=== PATIENT | female | born 1985 | race Caucasian/White ===

== ENCOUNTER 2020-08-27 01:31 | Outpatient (CLI) | payer SELFPAY ==
[2020-08-28 03:00] LABS: SARS-CoV-2 RNA PCR Negative
== END 2020-08-27 01:32 | disposition home or self-care (01) ==
LOC: ANHCOVIDDT 01:31
PROVIDERS: PCP Urology; Visit Provider Surgery Plastic and Reconstructive Surgery
DX: Z01.812 Encounter for preprocedural laboratory examination; Z20.828 Contact with and (suspected) exposure to other viral communicable diseases
CPT/HCPCS: 87635; C9803; U0003

== ENCOUNTER 2020-08-29 02:03 | Day surgery (SDC) | payer OTHER, SELFPAY ==
[2020-08-18 13:19] VITALS: BMI 20.3
[2020-08-29] VITALS (13 sets, daily range): BP systolic 79–116; BP diastolic 48–73; PULSE 46–82; RESP 10–16; TEMP 35.9–36.8; O2SAT 94–100; BMI 18.6
--- NOTE | 2020-08-29 09:10 | ECG_ITS ---
Measurements Intervals [place] Rate: 59 P: 11 AR: 155 QRS: 65 QRSD: 83 T: 40 QT: 406 QTc: 404 Interpretive Statements SINUS BRADYCARDIA BORDERLINE ECG Electronically Signed On 08-29-2020 10:15:16 [employer] HEL[employer] by Anibal Adorno D.O.
--- NOTE | 2020-08-29 09:47 | WPDHPUPDATE1 ---
History and Physical Update Update Date/Time: 08/29/20 09:47 History and Physical has been reviewed, including an updated exam of the patient. There are NO changes in the patient's condition. Risks, benefits, and alternatives have been discussed and questions answered. Patient agrees to proceed with procedure.
[2020-08-29 09:49] LABS: Urine Cotinine NEGATIVE
[2020-08-29] MEDS: LACTATED RINGERS 1,000 ML 30 ML IV CONT ×2 (09:50→14:40)
--- NOTE | 2020-08-29 09:52 | SUR.PREOP ---
ASSISTED DR JENNINGS IN MARKING PT
[2020-08-29 09:56] LABS: Hematocrit 40.2 % (37.0-47.0); Hemoglobin 13.6 g/dL (12.0-15.0)
--- NOTE | 2020-08-29 10:04 | WPDANESEPPF ---
Anes - Initial Pre Proc Eval Procedure: Operation Date: 08/29/20 10:30 Proposed Procedures p Bilateral Augmentation Mammoplasty - Ethan Solis MD s Abdominoplasty - Ethan Solis MD Date/Time: 08/29/20 10:04 Surgeon: Ethan Solis MD Pre Op Diagnosis: Micromastia/ Skin Laxity Patient Data Age: 35 Gender: F Height: 5 ft 3 in Weight: 47.8 kg Allergies Allergy/AdvReac Type Severity Reaction Status Date / Time No Known Allergies Allergy Mild Verified 08/29/20 09:35 Home Medications Medication Instructions Recorded Confirmed Type carisoprodol 350 mg tablet 350 mg PO TID PRN #21 tablet 08/12/20 08/18/20 Rx docusate sodium 100 mg capsule 100 mg PO DAILY #14 cap 08/12/20 08/18/20 Rx ondansetron HCl 4 mg tablet 4 mg PO Q8H #28 tablet 08/12/20 08/18/20 Rx oxycodone-acetaminophen 5 mg-325 1 tablet PO Q6H PRN #15 tablet 08/12/20 08/18/20 Rx mg tablet Laboratory Tests 08/29/20 08/29/20 09:27 09:49 Hgb 13.6 g/dL g/dL (12.0-15.0) Hct 40.2 % % (37.0-47.0) Cotinine Negative Patient hx anesthesia problems: none Family hx anesthesia problems: none PMFSH Past Medical History Medical History (Updated 08/29/20 @ 10:06 by Elan Veliz MD) Hx of migraines Surgical History Surgical History History of History of D&C History of rhinoplasty Social History Social History Years smoked: 2 Smoking status: Never smoker Tobacco type: cigarettes Additional smoking assessment comments: QUIT 2005 Alcohol intake: never Drinks per week: 1 Substance use: unknown Spiritual care concerns: No Anes - Eval Final PreProcedure Day of Procedure 08/29/20 10:04 Patient weight: normal Heart: regular rate and rhythm Lungs: clear to auscultation Airway: Mallampati scale class II Neurological: alert and oriented Last oral intake: >/= 8 hours ASA classification: I Emergent: no Anesthetic plan: proceed Anesthesia type and monitoring: general and standard monitoring Informed Consent: The patient's anesthetic plan and its attendant risks and benefits were discussed with the patient/family/POA. Questions were solicited and answers provided to the satisfaction of the patient/family/POA.
--- NOTE | 2020-08-29 10:18 | PM.PROC ---
Procedure Note - Detailed Date of procedure: 08/29/20 Pre-op diagnosis: Micromastia/ Skin Laxity Post-op diagnosis: same Procedure performed: 1. Bilateral Augmentation Mammaplasty 2. Progressive tension abdominoplasty Description of procedure: She is here today for bilateral breast augmentation and abdominoplasty. Previously and again today the risks, benefits, alternatives were discussed in extensive detail. I wanted her to be very realistic about the risks involved as well as expectations. We discussed aftercare and what to monitor for. Made sure answered all of her questions to her satisfaction today and consent was obtained. Marked in the preoperative holding area with their verification. The patient was taken to the operating room placed supine on the operating table. Anesthesia was provided by anesthesiology. A landon catheter was started. A surgical time-out was taken. We cleansed the skin and 1% lidocaine and 0.25% Marcaine with epinephrine was used anesthetize as a field block. She was prepped and draped in a standard sterile fashion. Tegaderm nipple Segura were placed. A 15 blade used to make an incision along the inframammary fold. Dissection was continued at 45 degree angle until the chest wall as identified. I elevated above the muscle bilateral in a dual plane technique. I incised the pectoralis major along its inferior border and completely released the inferior border leaving the medial border intact. I created a subpectoral pocket in the appropriate dimensions based on our preoperative planning for the implant. I then copiously irrigated with saline solution and verified a strict hemostasis. Next the use a triple antibiotic and Betadine containing solution to irrigate the pocket. I washed my gloves with the triple antibiotic and Betadine solution. We washed the implant immediately upon opening it with this solution and only opened it when we needed it. I used implant funnel and no-touch technique. The implant was introduced into the pocket using the funnel. Having verified positioning of the implant this was closed using 2-0 Vicryl followed by 3-0 Monocryl in a running subcuticular 4-0 Monocryl followed by tissue glue. I proceeded to the abdominoplasty. I placed the patient in a flexed position to verify the upper and lower markings would reach. I then placed her supine. A thorough abdominal examination was completed. Stab incisions were made and used tumescent solution. A 10 blade was used to make the upper incision. I continued dissection down to the level of fascia. Elevated just what was necessary for repair of the diastasis and discontinuous undermining otherwise. I then again flexed the bed to verify the upper skin flap would reach the lower markings without tension. Once verified I placed her supine once again and a 10 blade used to make the lower incision. I elevated up to level the umbilicus and left the umbilicus intact on a well-vascularized stalk. The intervening tissue was removed. A 2 mm blunt cannula and Exparel which was mixed 20 cc in 100 cc for a total volume of 120 cc I injected deep to the fascia bilaterally as well as along the incision lines. I plicated the diastasis recti using 0 PDO stratafix barbed suture. This was in 2 separate layers using 2 separate sutures as well. I repaired around the umbilicus leaving plenty of room for well-vascularized stalk of the umbilicus with 2-0 PDS. I also plicated oblique with 0 PDO stratafix bilateral. The patient was flexed and starting from superior to inferior began plication using 2-0 Vicryl to obliterate all space in a standard progressive tension fashion. At the umbilicus I marked out the location of the skin and inset this with 3-0 Monocryl and 4-0 nylon. I continued the remainder of the plication using 2-0 Vicryl until I reached my lower planned scar line. I trimmed any excess skin of the upper flap making sure this was a tension-free closure. I then ap
[2020-08-29] MEDS: SCOPOLAMINE 1.5 MG PATCH TRANSDERM (10:33)
[2020-08-29] MEDS: ceFAZolin 2 GM/D5W 50 ML 2 GM/50 ML BAG IVPB (10:42)
[2020-08-29] MEDS: LIDO 1%/EPINEPHRINE 1:100,000 20 ML VIAL 40 ML INFILTRATE (11:00)
--- NOTE | 2020-08-29 12:02 | SUR.OPER ---
non removable metal braclet right wrist/wavier signed/wraped with 2 gauze roll under braclet and over braclet/loose application. Dr Solis aware braclet on and wraped with gauze prior to induction.
--- NOTE | 2020-08-29 12:42 | SUR.OPER ---
Breast Implants [facility] Soft Touch Breast Implants/Allergan/360cc left ssm-360, sn [id number] right ssm-360, sn [id number] Right Implant to field 1135 left implant to field 1145 Implants immediately placed in antibiotic solution bottle lot # [id number], exp [id number].
--- NOTE | 2020-08-29 13:32 | SUR.OPER ---
abdominal tissue 568.9 gm to dispose of tissue as per Dr Solis.
[2020-08-29] MEDS: LACTATED RINGERS 1,000 ML 125 ML IV CONT (16:38)
[2020-08-29] MEDS: carisoprodoL (*CRX) 350 MG TABLET PO (18:49)
[2020-08-29] MEDS: DOCUSATE SODIUM 100 MG CAPSULE PO (21:05)
[2020-08-30] VITALS: BP 100/64; PULSE 60; RESP 16; TEMP 37.1; O2SAT 100
[2020-08-30] MEDS: carisoprodoL (*CRX) 350 MG TABLET PO ×3 (00:12→12:56)
[2020-08-30] MEDS: LACTATED RINGERS 1,000 ML 125 ML IV CONT (00:15)
[2020-08-30] MEDS: oxyCODONE/ACETAMINOPHEN (*CRX) 5-325 MG TABLET PO ×3 (01:32→12:56)
[2020-08-30 04:00] VITALS: BP 114/62; PULSE 67; RESP 16; TEMP 36.8; O2SAT 99
[2020-08-30 06:45] VITALS: BP 107/75; PULSE 74; RESP 20; TEMP 37
--- NOTE | 2020-08-30 09:23 | WPDPN ---
Progress Note: A&P Assessment and Plan (1) Micromastia: Code(s): N64.82 - Hypoplasia of breast Status: Acute Assessment and Plan: Doing well after bilateral breast augmentation and abdominoplasty. Will discharge home. Follow-up. (2) Skin laxity: Code(s): L57.4 - Cutis laxa senilis Status: Acute Review of Systems Review of Systems: All systems reviewed & are unremarkable except as noted in HPI and below Exam Narrative: Exam Narrative: Bilateral breasts are soft. No signs of infection. No hematoma. No seroma. Abdomen is soft. No signs of infection. No hematoma. No seroma. Good color and capillary refill. No calf tenderness. Negative Homans. Const: General: comfortable, no acute distress, alert and awake; No acute distress Orientation/consciousness: oriented to person HENMT: Head: normal to inspection Ears: external ears normal General nose exam: Normal external nose present Face and sinus: normal facial exam Eyes: General: appearance normal, both eyes and all related structures Periorbital: periorbital findings normal Eyelids: eyelids normal Conjunctivae: conjunctivae normal Neck: Neck: normal visual inspection Chest: Chest palpation & inspection: normal inspection of the chest Resp: Effort & Inspection: normal respiratory effort and able to speak in complete sentences GI: Inspection: normal to inspection Neuro: General: oriented to person Psych: Appearance: grossly normal Mental Status: mental status grossly normal Objective Data Vital Signs Vital Signs: Vital Signs - 24 hr 08/29/20 14:40 08/29/20 14:55 08/29/20 15:10 Temperature 35.9 C L 36.0 C L Pulse Rate 53 L 46 L 53 L Respiratory Rate 10 L 10 L 12 Blood Pressure 95/65 L 95/52 L 98/68 L Pulse Oximetry 100 100 96 08/29/20 15:25 08/29/20 15:40 08/29/20 16:12 Temperature 36.1 C L 36.1 C L 36.3 C L Pulse Rate 48 L 50 L 51 L Respiratory Rate 12 12 16 Blood Pressure 92/67 L 95/57 L 84/50 L Pulse Oximetry 94 99 99 08/29/20 16:15 08/29/20 16:30 08/29/20 17:00 Temperature Pulse Rate 52 L 48 L 64 Respiratory Rate 14 14 16 Blood Pressure 84/50 L 84/50 L 116/73 Pulse Oximetry 100 99 100 08/29/20 17:30 08/29/20 18:00 08/29/20 19:00 Temperature 36.4 C Pulse Rate 57 L 51 L 63 Respiratory Rate 16 16 16 Blood Pressure 79/48 L 88/54 L 90/54 L Pulse Oximetry 100 100 100 08/29/20 20:00 08/30/20 00:00 08/30/20 04:00 Temperature 36.8 C 37.1 C 36.8 C Pulse Rate 82 60 67 Respiratory Rate 16 16 16 Blood Pressure 100/61 100/64 114/62 Pulse Oximetry 100 100 99 08/30/20 06:45 Temperature 37.0 C Pulse Rate 74 Respiratory Rate 20 Blood Pressure 107/75 Pulse Oximetry Intake/Output Intake/Output: Intake & Output 08/27/20 08/28/20 08/29/20 08/30/20 23:59 23:59 23:59 23:59 Intake Total 250 2380 Output Total 40 2150 Balance 210 230 Meds/Results Medications: Active Medications Generic Name Dose Route Start Last Admin Trade Name Freq PRN Reason Stop Dose Admin Carisoprodol 350 mg 08/29/20 18:00 08/30/20 07:07 Carisoprodol (*Crx) 350 Mg Tablet PO 350 mg Q6HR CARLI Administration Docusate Sodium 100 mg 08/29/20 21:00 08/29/20 21:05 Docusate Sodium 100 Mg Capsule PO 100 mg Q12HR CARLI Administration Enoxaparin Sodium 40 mg 08/30/20 09:00 Enoxaparin 40 Mg/0.4 Ml Syringe SUB-Q Q24H CARLI Lactated Ringer's 1,000 mls @ 125 mls/hr 08/29/20 14:35 08/30/20 04:15 Lr - Lactated Ringers Iv IV CONT 125 mls/hr .Q8H CARLI Infusion Morphine Sulfate 2 mg 08/29/20 14:33 Morphine Sulfate (*Crx) 2 Mg/Ml Inj IV PUSH Q2H PRN Pain Ondansetron HCl 4 mg 08/29/20 14:33 Ondansetron Inj 4 Mg/2 Ml Vial IV PUSH Q6H PRN Nausea Oxycodone/Acetaminophen 1 - 2 tablet 08/29/20 14:33 08/30/20 07:07 Oxycodone/Acetaminophen (*Crx) 5-325 Mg Tablet PO 1 tablet Q6H PRN Administration Pain Labs Labs: Laboratory R
--- NOTE | 2020-08-30 09:25 | P.DS_ITS ---
DS: Admitting Diagnosis Admitting Diagnosis Admitting Diagnosis: Micromastia/ Skin Laxity DS: Discharge Diagnosis Discharge Diagnosis (1) Micromastia: Code(s): N64.82 - Hypoplasia of breast Status: Acute Assessment and Plan: She is doing very well after bilateral augmentation mammoplasty and abdominoplasty. Will discharge home. Today we had a lengthy discussion about the care. Discussed what monitor for. Activity limitations. This was a lengthy open-ended conversation making sure all of her questions were answered. She understands when to proceed to the emergency room/ dial 911. What is a surgical emergency. She understands were available at any time with any questions or concerns. I will see her back in clinic. (2) Skin laxity: Code(s): L57.4 - Cutis laxa senilis Status: Acute DS: Summary Time Spent with Patient Time attestation: Total time spent providing and/or coordinating discharge serv ices: 15 Exam Narrative: Exam Narrative: Bilateral breasts are soft. No signs of infection. No hematoma. No seroma. Abdomen is soft. No signs of infection. No hematoma. No seroma. Good color and capillary refill. No calf tenderness. Negative Homans. Const: General: comfortable, no acute distress, alert and awake; No acute distress Orientation/consciousness: oriented to person HENMT: Head: normal to inspection Ears: external ears normal General nose exam: Normal external nose present Face and sinus: normal facial exam Eyes: General: appearance normal, both eyes and all related structures Periorbital: periorbital findings normal Eyelids: eyelids normal Conjunctivae: conjunctivae normal Neck: Neck: normal visual inspection Chest: Chest palpation & inspection: normal inspection of the chest Resp: Effort & Inspection: normal respiratory effort and able to speak in complete sentences GI: Inspection: normal to inspection Neuro: General: oriented to person Psych: Appearance: grossly normal Mental Status: mental status grossly normal DS: Data Data Completed and Pending Labs on day of discharge: Labs from last 24 hours 08/29/20 08/29/20 09:49 09:27 Hgb 13.6 Hct 40.2 Cotinine Negative Discharge Plan Discharge Patient Disposition: Home, Self-Care Discharge Instructions: POST OPERATIVE DISCHARGE INSTRUCTIONS FOR: Breast Augmentation WOODROW JENNINGS M.D. [facility] [place] [address] * No driving for 24 hours after anesthesia and while you are taking pain medication. * Take all prescribed medication as directed * Diet as tolerated. * Begin gentle shoulder rolls and arm stretches 10 times per hour. * No lifting or activity that raises blood pressure for 48 hours. * No straining or lifting more than 20 pounds for 6 weeks. * Slowly stand up straight as tolerated over the week. * Regular walking / ambulation. * No showering until directed to. * No pools or tubs for 2 weeks. * Call with any questions or concerns. * You may remove the dressings and bra. At this point my may shower. Do not take pain medication before showering as the combination of medication and
--- NOTE | 2020-08-30 09:25 | PM.DS ---
DS: Admitting Diagnosis Admitting Diagnosis Admitting Diagnosis: Micromastia/ Skin Laxity DS: Discharge Diagnosis Discharge Diagnosis (1) Micromastia: Code(s): N64.82 - Hypoplasia of breast Status: Acute Assessment and Plan: She is doing very well after bilateral augmentation mammoplasty and abdominoplasty. Will discharge home. Today we had a lengthy discussion about the care. Discussed what monitor for. Activity limitations. This was a lengthy open-ended conversation making sure all of her questions were answered. She understands when to proceed to the emergency room/ dial 911. What is a surgical emergency. She understands were available at any time with any questions or concerns. I will see her back in clinic. (2) Skin laxity: Code(s): L57.4 - Cutis laxa senilis Status: Acute DS: Summary Time Spent with Patient Time attestation: Total time spent providing and/or coordinating discharge services: 15 Exam Narrative: Exam Narrative: Bilateral breasts are soft. No signs of infection. No hematoma. No seroma. Abdomen is soft. No signs of infection. No hematoma. No seroma. Good color and capillary refill. No calf tenderness. Negative Homans. Const: General: comfortable, no acute distress, alert and awake; No acute distress Orientation/consciousness: oriented to person HENMT: Head: normal to inspection Ears: external ears normal General nose exam: Normal external nose present Face and sinus: normal facial exam Eyes: General: appearance normal, both eyes and all related structures Periorbital: periorbital findings normal Eyelids: eyelids normal Conjunctivae: conjunctivae normal Neck: Neck: normal visual inspection Chest: Chest palpation & inspection: normal inspection of the chest Resp: Effort & Inspection: normal respiratory effort and able to speak in complete sentences GI: Inspection: normal to inspection Neuro: General: oriented to person Psych: Appearance: grossly normal Mental Status: mental status grossly normal DS: Data Data Completed and Pending Labs on day of discharge: Labs from last 24 hours 08/29/20 08/29/20 09:49 09:27 Hgb 13.6 Hct 40.2 Cotinine Negative Discharge Plan Discharge Patient Disposition: Home, Self-Care Discharge Instructions: POST OPERATIVE DISCHARGE INSTRUCTIONS FOR: Breast Augmentation ETHAN SOLIS M.D. [facility] [address] [place] [address] [address] driving for 24 hours after anesthesia and while you are taking pain medication. Take all prescribed medication as directed Diet as tolerated. Begin gentle shoulder rolls and arm stretches 10 times per hour. No lifting or activity that raises blood pressure for 48 hours. No straining or lifting more than 20 pounds for 6 weeks. Slowly stand up straight as tolerated over the week. Regular walking / ambulation. No showering until directed to. No pools or tubs for 2 weeks. Call with any questions or concerns. You may remove the dressings and bra. At this point my may shower. Do not take pain medication before showering as the combination of medication and heat may cause you to feel dizzy or pass out. Let soap and water run over your incisions. Do not scrub or directly wash your incision. Replace the surgical bra and wear it 23 hours per day. If you have any questions or concerns, please call the office . If it is after hours you will be directed to the product operations associate exchange. Shortness of breath, chest pain, or other medical emergency dial 911 / proceed to the Emergency Room. Stand Alone Forms: General Discharge Instructions Follow-up/Referrals: Ethan Solis MD [Physician] - 1 Week Discharge Medications: Continued ondansetron HCl [Zofran] 4 mg tablet 4 mg PO Q8H Qty: 28 RF: 0 docusate sodium [Colace] 100 mg capsule 100 mg PO DAILY Qty: 14 RF: 0 cariso
--- NOTE | 2020-08-30 09:46 | WPDANESPN ---
Anes - Prog Note Post-Op Date/Time: 08/30/20 09:46 Cardiovascular status: normal Respiratory status: normal Airway patency: baseline Mental status: baseline Post-Op hydration status: normal Vital Signs: Last Vital Signs Temp 37.0 C 08/30/20 06:45 Pulse 74 08/30/20 06:45 Resp 20 08/30/20 06:45 BP 107/75 08/30/20 06:45 Pulse Ox 99 08/30/20 04:00 Pain Score (VAS): 11/02 I/O: Intake & Output 08/29/20 08/30/20 08/30/20 23:59 07:59 15:59 Intake Total 2380 Output Total 2150 Balance 230 Laboratory Tests 08/29/20 09:49 08/29/20 08/29/20 09:27 09:49 Hgb 13.6 Hct 40.2 Cotinine Negative Post-procedural complaints: none Patient Feedback: Patient satisfied with anesthetic care.
[2020-08-30] MEDS: DOCUSATE SODIUM 100 MG CAPSULE PO (12:56)
[2020-08-30] MEDS: ENOXAPARIN 40 MG/0.4 ML SYRINGE SUB-Q (12:57)
== END 2020-08-30 15:40 | disposition home or self-care (01) ==
LOC: ANHSURGERY 10:25 → ANHOB2 16:22
PROVIDERS: Anesthesiology; PCP Urology; Visit Provider Surgery Plastic and Reconstructive Surgery
PROC: (CPT 19325; principal; 2020-08-29 10:30)
PROC: (CPT 19325; 2020-08-29 10:30)
DX: N64.82 Hypoplasia of breast (principal); L57.4 Cutis laxa senilis; Z87.891 Personal history of nicotine dependence
CPT/HCPCS: 19325; 15830; 15847; 80307; 85014; 85018; 93005; 99199; A9270; C9290; J0171; J0690; J1100; J1170; J1580; J1650; J2250; J2370; J2405; J2704; J3010; J7120

== ENCOUNTER → 2021-08-10 14:51 | Outpatient (REF) | payer BC, SELFPAY | LOC: ANHLAB 14:51 | PROVIDERS: PCP Urology; Visit Provider Nurse Practitioner | DX: D22.4 Melanocytic nevi of scalp and neck (principal) | CPT/HCPCS: 88305 ==

== ENCOUNTER → 2022-05-17 13:27 | Outpatient (CLI) | payer BC, SELFPAY ==
--- NOTE | ~2022-05-17 | CT_ITS ---
EXAMINATION: CT abdomen pelvis wo con DATE: 05/17/2022 13:45 INDICATION: Abdominal bulge and pain, umbilical hernia TECHNIQUE: Computed tomography (CT) of the abdomen and pelvis was performed without intravenous contr ast. The dose-length product (DLP) was 306.90 mGy-cm. Automated exposure control and iterative recons truction technique were employed. COMPARISON: None FINDINGS: The lung bases are clear. The heart size is normal. There are partially imaged breast impla nts. The liver, spleen, pancreas, gallbladder, and adrenal glands are normal. There is a 2 mm nonobst ructing stone of the left kidney. The right kidney is unremarkable. There is a tiny umbilical hernia containing fat. No pathologically enlarged abdominal or pelvic lymph nodes are identified. There is n o free intraperitoneal gas or evidence of bowel obstruction. A moderate volume of colonic stool is pr esent. IMPRESSION: 1. Tiny umbilical hernia containing fat. 2. Nonobstructing left nephrolithiasis. Reviewed, dictated and finalized at location B.
== END ==
PROVIDERS: PCP Surgery Plastic and Reconstructive Surgery; Visit Provider Surgery Plastic and Reconstructive Surgery
DX: K42.9 Umbilical hernia without obstruction or gangrene (principal); R10.9 Unspecified abdominal pain; N20.0 Calculus of kidney
CPT/HCPCS: 74176

== ENCOUNTER 2022-12-09 08:00 | Outpatient (NON) | payer BC, SELFPAY | END 2022-12-09 08:01 | disposition home or self-care (01) | LOC: ANHLAB 12-10 12:10 | PROVIDERS: PCP Surgery Plastic and Reconstructive Surgery; Visit Provider Nurse Practitioner | DX: D23.22 Other benign neoplasm of skin of left ear and external auricular canal (principal) | CPT/HCPCS: 88305 ==